=== PATIENT | female | born 1990 | race American Indian/Alaskan Native ===

== ENCOUNTER 2017-07-08 17:52 | Emergency (ER) | payer OTHER ==
[2017-07-08 17:58] VITALS: BP 113/76
--- NOTE | 2017-07-08 19:11 | XRay Report ---
FINAL REPORT PROCEDURE: XR HAND 3+V RT TECHNIQUE: Right hand, 3 views HISTORY: PAIN AND SWELLING COMPARISON: No prior studies are available for comparison. FINDINGS: There is a minimally displaced fracture at the base of the 5th metacarpal. No joint dislocation. No radiopaque foreign body is seen. IMPRESSION: Fracture of the base of the 5th metacarpal
[2017-07-08] MEDS ORDERED: MOTRIN PO ONE (19:51)
--- NOTE | 2017-07-08 19:56 | Emergency Department Report ---
ED Extremity Problem HPI - General Chief complaint: Extremity Injury, Upper Stated complaint: HAND PAIN Time Seen by Provider: 07/08/17 19:46 Source: patient Mode of arrival: Ambulatory Limitations: No Limitations - History of Present Illness Initial comments: PT states she was at home yesterday and punched a wall. PT states she was not trying to hurt herself, she was just mad. PT states she has done this before and not had any problems. PT states this time her hand has become swollen and painful. No relief with Ice or Tylenol PT states lmp 06-26-17 MD Complaint: extremity pain -: Sudden, days(s) (yesterday ) Location: right History of Same: No Severity scale (0 -10): 9 Quality: constant Consistency: constant Improves with: cold therapy (mild improvement ) Associated Symptoms: denies: chest pain, shortness of breath, rash - Related Data Previous Rx's Medication Instructions Recorded Last Taken Type Acetaminophen/Codeine [Tylenol #3] 1 tab PO Q6H PRN #12 tab 07/08/17 Unknown Rx Ibuprofen [Motrin] 600 mg PO Q8H PRN #15 tablet 07/08/17 Unknown Rx Allergies Allergy/AdvReac Type Severity Reaction Status Date / Time No Known Allergies Allergy Unverified 07/08/17 17:55 ED Review of Systems ROS: Stated complaint: HAND PAIN Other details as noted in HPI Comment: All other systems reviewed and negative Constitutional: denies: fever Genitourinary: denies: abnormal menses Musculoskeletal: as per HPI Psychiatric: denies: homicidal thoughts, suicidal thoughts ED Past Medical Hx - Past Medical History Hx Asthma: Yes - Surgical History Hx Cholecystectomy: Yes - Social History Smoking Status: Never Smoker Substance Use Type: None - Medications Home Medications: Home Medications Medication Instructions Recorded Confirmed Last Taken Type Acetaminophen/Codeine [Tylenol #3] 1 tab PO Q6H PRN #12 tab 07/08/17 Unknown Rx Ibuprofen [Motrin] 600 mg PO Q8H PRN #15 tablet 07/08/17 Unknown Rx ED Physical Exam - General Limitations: No Limitations General appearance: alert, in no apparent distress - Head Head exam: Present: atraumatic, normocephalic, normal inspection - Eye Eye exam: Present: normal appearance. Absent: conjunctival injection - ENT ENT exam: Present: normal exam, normal external ear exam - Neck Neck exam: Present: normal inspection, full ROM - Respiratory Respiratory exam: Present: normal lung sounds bilaterally. Absent: respiratory distress, chest wall tenderness - Cardiovascular Cardiovascular Exam: Present: regular rate, normal rhythm, normal heart sounds - Extremities Exam Extremities exam: Absent: normal inspection, full ROM - Expanded Upper Extremity Exam Right Elbow exam: Present: normal inspection. Absent: tenderness Forearm Wrist exam: Present: normal inspection. Absent: tenderness Hand Wrist exam: Present: tenderness, swelling, ecchymosis. Absent: full ROM ( decreased rom to R little finger due to pain, sensation wnl, cap refill less than 3 seconds ), deformity, subungual hematoma Vascular: Present: radial pulse - Back Exam Back exam: Present: normal inspection, full ROM. Absent: tenderness, CVA tenderness (R), CVA tenderness (L) - Neurological Exam Neurological exam: Present: alert, oriented X3, normal gait - Psychiatric Psychiatric exam: Present: normal affect, normal mood. Absent: suicidal ideation - Skin Skin exam: Present: warm, dry, normal color, ecchymosis (R hand ) ED Course Vital Signs 07/08/17 07/08/17 17:55 20:24 Temperature 98.2 F Pulse Rate 65 Respiratory 20 18 Rate Blood Pressure 113/76 - Reevaluation(s) Reevaluation #1: 07/08/17 19:58 PT aware of dx and plan of care. PT has no questions at this time. Reevaluation #2: 07/08/17 20:39 Nursing staff applied Ulnar gutter splint. PT NVI. PT has no questions at this time. ED Medical Decision Making - Radiology Data Radiology results: report reviewed XR - FX base of 5th metacarpal - Differential Diagnosis fracture, contusion Critical Care Time: No Critical care attestation.: If time is entered above; I have spent that time in minutes in the direct care of this critically ill patient, excluding procedure time. ED Disposition Clinical Impression: Boxer's fracture Qualifiers: Encounter type: initial encounter Fracture type: closed Qualified Code(s): S62.339A - Displaced fracture of neck of unspecified metacarpal bone, initial encounter for closed fracture Disposition: - TO HOME OR SELFCARE Is pt being admited?: No Does the pt Need Aspirin: No Condition: Stable Instructions: Hand Fracture (ED), Boxer Fracture (ED) Additional Instructions: RICE Keep your splint clean and dry Follow up with ORTHO in 3-5 days [address] or ETOH after taking Tylenol #3 [address] while you hand is in a splint Prescriptions: Acetaminophen/Codeine [Tylenol #3] 1 tab PO Q6H PRN #12 tab PRN Reason: Pain , Severe (7-10) Ibuprofen [Motrin] 600 mg PO Q8H PRN #15 tablet PRN Reason: Pain Referrals: PRIMARY CARE, [Primary Care Provider] - 3-5 Days DEVIN TONEY MD [Staff Physician] - 3-5 Days JOVAN CARRANZA MD [Staff Physician] - 3-5 Days [facility] [Outside] - 3-5 Days Forms: Work/School Release Form(ED) Time of Disposition: 20:41
== END 2017-07-08 20:49 | disposition home or self-care (01) ==
LOC: ED 17:52
DX: S62.316A Displaced fracture of base of fifth metacarpal bone, right hand, initial encounter for closed fracture (principal); J45.909 Unspecified asthma, uncomplicated; Z90.49 Acquired absence of other specified parts of digestive tract; W22.01XA Walked into wall, initial encounter; Y93.89 Activity, other specified; Y99.8 Other external cause status; Y92.89 Other specified places as the place of occurrence of the external cause

== ENCOUNTER 2017-07-13 12:06 | Emergency (ER) | payer OTHER ==
[2017-07-13 13:19] VITALS: BP 118/71
--- NOTE | 2017-07-13 13:41 | Emergency Department Report ---
ED Upper Extremity Inj HPI - General Chief Complaint: Extremity Injury, Upper Stated Complaint: RIGHT HAND NUMB Time Seen by Provider: 07/13/17 13:37 Source: patient, RN notes reviewed, old records reviewed Mode of arrival: Ambulatory Limitations: No Limitations - History of Present Illness Initial Comments: here last week referred to ortho they wont see her so she came here splint in place [facility] [employer] 5th dig fx rude and argumentative above referral to ortho Complaint: Injury to:: right -: Sudden Other Extremity Injury: Fingers: Right Handedness: right Place: home Worsens With: none Associated Symptoms: denies other symptoms - Related Data Previous Rx's Medication Instructions Recorded Last Taken Type Acetaminophen/Codeine [Tylenol #3] 1 tab PO Q6H PRN #12 tab 07/08/17 Unknown Rx Ibuprofen [Motrin] 600 mg PO Q8H PRN #15 tablet 07/08/17 Unknown Rx Allergies Allergy/AdvReac Type Severity Reaction Status Date / Time No Known Allergies Allergy Unverified 07/08/17 17:55 ED Review of Systems ROS: Stated complaint: RIGHT HAND NUMB Other details as noted in HPI Comment: All other systems reviewed and negative Musculoskeletal: other (finger) ED Past Medical Hx - Past Medical History Hx Asthma: Yes - Surgical History Hx Cholecystectomy: Yes - Social History Smoking Status: Never Smoker Substance Use Type: Alcohol - Medications Home Medications: Home Medications Medication Instructions Recorded Confirmed Last Taken Type Acetaminophen/Codeine [Tylenol #3] 1 tab PO Q6H PRN #12 tab 07/08/17 Unknown Rx Ibuprofen [Motrin] 600 mg PO Q8H PRN #15 tablet 07/08/17 Unknown Rx ED Physical Exam - General Limitations: No Limitations General appearance: alert - Head Head exam: Present: atraumatic - Eye Eye exam: Present: PERRL - ENT ENT exam: Present: mucous membranes moist - Neck Neck exam: Present: normal inspection - Respiratory Respiratory exam: Present: normal lung sounds bilaterally - Cardiovascular Cardiovascular Exam: Present: regular rate, normal rhythm (hr 80 on exam) - GI/Abdominal GI/Abdominal exam: Present: soft - Rectal Rectal exam: Present: deferred - Expanded Upper Extremity Exam Right Elbow exam: Present: normal inspection Forearm Wrist exam: Present: normal inspection Hand Wrist exam: Present: tenderness, swelling, ecchymosis Hand L/R Back: 1 - area of swelling and tenderness. good radial and ulnar pulse. rapid cap refill. wrist wnl. ulnar/med/rad nerve intact - Back Exam Back exam: Present: normal inspection - Neurological Exam Neurological exam: Present: alert, oriented X3 - Psychiatric Psychiatric exam: Present: normal affect, normal mood, agitated, anxious - Skin Skin exam: Present: warm, dry ED Course Vital Signs 07/13/17 13:13 Temperature 97.7 F Pulse Rate 48 L Respiratory 16 Rate Blood Pressure 118/71 O2 Sat by Pulse 100 Oximetry - Reevaluation(s) Reevaluation #1: 07/13/17 14:32 long discussion w pt and gf about the importance of ortho follow up verbalize understanding splint reapplied dc home w ortho follow up ED Medical Decision Making - Radiology Data Radiology results: report reviewed, image reviewed - Medical Decision Making see note - Differential Diagnosis follow up Critical care attestation.: If time is entered above; I have spent that time in minutes in the direct care of this critically ill patient, excluding procedure time. ED Disposition Clinical Impression: Fracture, metacarpal Disposition: DC-01 TO HOME OR SELFCARE Is pt being admited?: No Does the pt Need Aspirin: No Condition: Stable Instructions: Finger Sprain (ED), Boxer Fracture (ED) Additional Instructions: splint ice rest elevate motrin for pain you are going to have to see ortho to have this evaluated Referrals: PRIMARY MD ADEEL [Primary Care Provider] - 3-5 Days DEVIN TONEY MD [Staff Physician] - 3-5 Days Time of Disposition: 14:26
--- NOTE | 2017-07-13 18:55 | XRay Report ---
FINAL REPORT EXAM: XR FINGER(S) 1V RT HISTORY: reeval bse 5th digit sp fx last week see film TECHNIQUE: Three views right hand Comparison: 07/08/2017 FINDINGS: Previously identified minimally displaced and slightly angulated fracture base of the 5th metacarpal is again identified and unchanged. The angulation is better identified on the current series of x-rays oblique image. It also shows mild approximately 3 millimeter impaction. There are no other fractures identified. There are no dislocations. IMPRESSION: Minimally displaced slightly angulated mildly impacted fracture base of the right 5th metacarpal unchanged from the previous and better delineated on the current series of films.
== END 2017-07-13 14:36 | disposition home or self-care (01) ==
LOC: ED 12:06
DX: S62.316A Displaced fracture of base of fifth metacarpal bone, right hand, initial encounter for closed fracture (principal); X58.XXXA Exposure to other specified factors, initial encounter; Y93.89 Activity, other specified; Y92.89 Other specified places as the place of occurrence of the external cause; Y99.8 Other external cause status
CPT/HCPCS: 99283

== ENCOUNTER 2017-09-22 18:59 | Emergency (ER) | payer SELFPAY ==
[2017-09-22 19:23] VITALS: BP 108/71
--- NOTE | 2017-09-23 04:20 | Emergency Department Report ---
Chief Complaint: Abdominal Pain Stated Complaint: ABD CRAMPS - HPI History of Present Illness: 26-year-old -[place] female comes in requesting for a doctor's note. She reports she's had abdominal cramping from her cycle that she gets every month she's been taken BC powders for 2 days. Patient reports that this is similar every month. She denies any nausea vomiting no fever or chills no abdominal pain except cramping from her cycle. She has no past medical history currently takes no medication and has no known drug allergies. - Exam Vital Signs: Vital Signs 09/22/17 19:17 Temperature 98.3 F Pulse Rate 55 L Respiratory 16 Rate Blood Pressure 108/71 O2 Sat by Pulse 100 Oximetry Physical Exam: Patient is alert and oriented 3. She is in no acute distress. Cardiovascular S1 and S2 regular rate and rhythm Respiratory clear to auscultation bilateral. MSE screening note: Focused history and physical exam performed. Due to findings the following was ordered: Patient is stable to follow up with her [facility] or primary care provider. Vital signs are stable. ED Disposition for MSE Disposition: MED SCREENING EXAM-LEFT Condition: Stable Instructions: Abdominal Pain (ED) Referrals: PRIMARY CARE, [Primary Care Provider] - 3-5 Days
== END 2017-09-22 20:48 | disposition left against medical advice (07) ==
LOC: ED 18:59
DX: R10.9 Unspecified abdominal pain (principal); Z53.21 Procedure and treatment not carried out due to patient leaving prior to being seen by health care provider
CPT/HCPCS: 99281